=== PATIENT | male | born 1965 | race Caucasian/White ===

== ENCOUNTER 2016-11-28 15:50 | Emergency (ER) | payer OTHER ==
[2016-11-28 16:28] VITALS: BP 131/77; PULSE 99; TEMP 98; BMI 24.3
[2016-11-28] MEDS ORDERED: IBUPROFEN 400 MG TABLET (FP) PO ONE ×2 (17:56→18:03)
--- NOTE | 2016-11-28 18:17 | PDOC ---
History of Present Illness - General Chief Complaint: Pain Stated Complaint: FALL, LT LEG PAIN Time Seen by Provider: 11/28/16 17:09 History Source: Patient - History of Present Illness Occurred: reports: other Severity: Yes: severe Lower Extremity Pain Location: right: knee Method of Injury: Yes: fell Past History - Past Medical History Allergies/Adverse Reactions: Allergies Allergy/AdvReac Type Severity Reaction Status Date / Time No Known Allergies Allergy Verified 11/28/16 16:28 Home Medications: Ambulatory Orders Sertraline HCl [Zoloft] 150 mg PO DAILY 06/28/12 Metformin HCl 500 mg PO DAILY 06/01/16 Sertraline HCl [Zoloft -] 150 mg PO DAILY #90 tablet 06/01/16 Ibuprofen [Motrin -] 800 mg PO Q6H #30 tablet 11/28/16 Anemia: Yes (on ferrous sulfate) Asthma: Yes Cancer: No Cardiac Disorders: No CVA: No COPD: Yes CHF: No Dementia: No Diabetes: Yes (BGM 101mg/dl) GI Disorders: No Disorders: No HTN: No Hypercholesterolemia: No Kidney Stones: No Liver Disease: No Suicide Attempt (Hx): No (DENIES) Seizures: No Thyroid Disease: No - Surgical History Abdominal Surgery: No Appendectomy: No Cardiac Surgery: No Cholecystectomy: No Lung Surgery: No Neurologic Surgery: No Orthopedic Surgery: No - Reproductive History Testicular Surgery: No - Psycho/Social/Smoking Cessation Hx Anxiety: Yes Suicidal Ideation: No Smoking History: Current every day smoker Have you smoked in the past 12 months: Yes Number of Cigarettes Smoked Daily: 10 Cigars Per Day: 10 Information on smoking cessation initiated: No 'Breaking Loose' booklet given: 06/01/16 Hx Alcohol Use: Yes (BEER) Drug/Substance Use Hx: Yes (COCAINE/XANAX) Substance Use Type: Alcohol, Cocaine, Tranquilizers Hx Substance Use Treatment: Yes ([facility]) Review of Systems - Review of Systems Musculoskeletal: Yes: Joint Pain. No: Joint Swelling *Physical Exam - Vital Signs Last Vital Signs Temp Pulse Resp BP Pulse Ox 98 F 99 H 18 131/77 100 11/28/16 16:23 11/28/16 16:23 11/28/16 16:23 11/28/16 16:23 11/28/16 16:23 - Physical Exam General Appearance: Yes: Appropriately Dressed. No: Apparent Distress HEENT: positive: Normal Voice Neck: positive: Supple Respiratory/Chest: negative: Respiratory Distress Extremity: positive: Normal Inspection, Normal Range of Motion. negative: Tender, Swelling Integumentary: positive: Dry, Warm Neurologic: positive: Fully Oriented, Alert, Normal Mood/Affect ED Treatment Course - RADIOLOGY Radiology Studies Ordered: Category Date Time Status FEMUR-LEFT [RAD] Stat Radiology 11/28/16 17:56 Ordered KNEE 2 POS-LEFT [RAD] Stat Radiology 11/28/16 17:56 Ordered Medical Decision Making - Medical Decision Making 11/28/16 17:57 51 yo M, h/o anemia, COPD, DM, polysubstance abuse, unclear psych hx, p/w LLE pain s/p fall. Pt reports slipping on a pool of water at home 3 days ago landing with left lower extremity bent behind beneath him. Since then has had pain to L knee/thigh and limping. Taking Tylenol with no relief. 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 Also seen on MRI at that time was a complex tear to the posterior horn of the medial meniscus of L knee w/ cartilage thinning which pt states was operated on. Pain currently improved w/ meds. Dc w/ ortho f/ u. Pt decline crutches as able to bear weight w/ cane *DC/Admit/Observation/Transfer Diagnosis at time of Disposition: Leg strain - Discharge Dispostion Disposition: HOME Condition at time of disposition: Improved - Prescriptions Prescriptions: Ibuprofen [Motrin -] 800 mg PO Q6H #30 tablet - Referrals Referrals: Olvin Pressley MD [Primary Care Provider] - Kan Quiñones MD [Staff Physician] - - Patient Instructions Printed Discharge Instructions: Muscle Strain Additional Instructions: Please follow up with orthopedics
== END 2016-11-28 19:11 | disposition home or self-care (01) ==
LOC: JERFT 15:50
DX: S76.812A Strain of other specified muscles, fascia and tendons at thigh level, left thigh, initial encounter (principal); J45.909 Unspecified asthma, uncomplicated; J44.9 Chronic obstructive pulmonary disease, unspecified; E11.9 Type 2 diabetes mellitus without complications; Z79.84 Long term (current) use of oral hypoglycemic drugs; W01.0XXA Fall on same level from slipping, tripping and stumbling without subsequent striking against object, initial encounter; Y93.89 Activity, other specified; Y92.038 Other place in apartment as the place of occurrence of the external cause
CPT/HCPCS: 73552-TC-LT; 73560-TC-LT; 99281-25

== ENCOUNTER 2024-07-03 04:30 | Day surgery (SDC) | payer OTHER ==
[2024-07-02 18:16] VITALS: BMI 19.8
[2024-07-03 11:27] VITALS: BP 143/87; PULSE 83; RESP 18; TEMP 98.2
== END 2024-07-03 13:07 | disposition home or self-care (01) ==
LOC: JASU-SURG 04:30
PROVIDERS: ATTEND Surgery
DX: Z53.8 Procedure and treatment not carried out for other reasons (principal)
CPT/HCPCS: 82962